=== PATIENT | female | born 1985 | race Caucasian/White ===

== ENCOUNTER 2023-09-20 08:00 | Outpatient (CLI) | payer BC ==
[2023-09-20 16:53] LABS: BILIRUBIN,URINE NEGATIVE (NEGATIVE); GLUCOSE, URINE (UA) NEGATIVE (NEGATIVE); KETONES,URINE (UA) NEGATIVE (NEGATIVE); LEUKOCYTE ESTERASE, URINE NEGATIVE (NEGATIVE); NITRITE,URINE NEGATIVE (NEGATIVE); OCCULT BLOOD,URINE NEGATIVE (NEGATIVE); PH,URINE 6.5 PH (5.0-7.5); PROTEIN,URINE NEGATIVE (NEGATIVE); UROBILINOGEN,URINE 0.2 (NORMAL) E.U./dL (NORMAL)
[2023-09-20 17:06] LABS: BACTERIA,URINE None Seen /HPF (None Seen); CLARITY,URINE CLEAR (CLEAR); RBC,URINE None Seen /HPF (0-5); SQUAMOUS EPITHELIAL CELL,UR RARE Squamous (<= Few); WBC,URINE 0-3 /HPF (0-5)
== END 2023-09-20 23:59 | disposition home or self-care (01) ==
LOC: LAB.WC 08:00
PROVIDERS: ATTEND Obstetrics & Gynecology
DX: Z34.80 Encounter for supervision of other normal pregnancy, unspecified trimester (principal)
CPT/HCPCS: 81001; 87086

== ENCOUNTER 2023-10-02 12:20 | Outpatient (CLI) | payer BC ==
--- NOTE | 2023-10-02 17:24 | Ultrasound Report ---
PROCEDURE: OB 1st Trimester INDICATIONS: POSITIVE TEST OUTSIDE/PRIOR DATING DATA: Last menstrual period (LMP): 07/18/2023. LMP-based estimated date of delivery (ISAAC): 04/23/2024. First dating scan (date and location): 10/02/2023. Estimated date of delivery (ISAAC) from first dating scan: 04/28/2024. TECHNIQUE: Real-time scanning was performed of the fetus and maternal pelvic organs, with image documentation. COMPARISON: None. FINDINGS: Intrauterine gestational sac present. Embryo: Childress-rump length measures 3.21 cm. Estimated gestational age is 10 weeks, 1 day. Heart rate: 171 bpm. Other: No perigestational fluid collection. Measurement variability in dating: +/- 4 weeks by LMP, +/- 7 days by mean sac diameter (use before 6 weeks gestation if crown-rump length not able to be measured), +/- 5 days by crown-rump length (6-12 weeks gestation). Maternal organs: Right corpus luteal cyst measures 3.1 x 3.1 x 3.5 cm in size. Intramural fibroid in anterior myometrium adjacent to placenta is seen measures 1.4 x 1.1 x 1.3 cm in size. IMPRESSION: 1. Single live intrauterine gestation with fetus and yolk sac seen. Estimated gestational age is 10 w eeks, 1 day. heart rate is 171 bpm. 2. Intramural fibroid in anterior myometrium as above. Right corpus luteal cyst measures 3.1 x 3.1 x 3.5 cm in size. Solid mass. Reviewed by: Franki Groves MD on 10/02/2023 5:23 PM PDT Approved by: Franki Groves MD on 10/02/2023 5:23 PM PDT Station ID: [id number]
== END 2023-10-02 12:21 | disposition home or self-care (01) ==
LOC: DI 12:20
PROVIDERS: ATTEND Obstetrics & Gynecology
DX: O34.11 Maternal care for benign tumor of corpus uteri, first trimester (principal); D25.1 Intramural leiomyoma of uterus; O34.81 Maternal care for other abnormalities of pelvic organs, first trimester; N83.11 Corpus luteum cyst of right ovary; Z3A.10 10 weeks gestation of pregnancy

== ENCOUNTER 2023-10-19 08:00 | Outpatient (CLI) | payer BC ==
[2023-10-20 20:11] LABS: CHLAMYDIA TRACHOMATIS DNA NEGATIVE (NEGATIVE); NEISSERIA GONORRHOEAE DNA NEGATIVE (NEGATIVE); TRICHOMONAS VAGINALIS DNA NEGATIVE (NEGATIVE)
== END 2023-10-19 23:59 | disposition home or self-care (01) ==
LOC: LAB.WC 08:00
PROVIDERS: ATTEND Nurse Practitioner
DX: Z11.3 Encounter for screening for infections with a predominantly sexual mode of transmission (principal)
CPT/HCPCS: 87491; 87591; 87661

== ENCOUNTER 2023-12-21 10:49 | Outpatient (CLI) | payer BC, OTHER ==
[2023-12-21 11:12] LABS: BASOPHILS % (AUTO) 0.4 %; EOSINOPHILS # (AUTO) 0.1 10^3/uL (0.0-0.7); EOSINOPHILS % (AUTO) 0.9 %; HCT - HEMATOCRIT 36.7 % (37.0-47.0); HGB - HEMOGLOBIN 11.8 g/dL (12.0-16.0); LYMPHOCYTES # (AUTO) 1.6 10^3/uL (1.5-3.5); LYMPHOCYTES % (AUTO) 16.3 %; MEAN CORPUSCULAR HEMOGLOBIN 29.1 pg (27.0-31.0); MEAN CORPUSCULAR HGB CONC 32.2 g/dL (32.0-36.0); MEAN CORPUSCULAR VOLUME 90.6 fL (81.0-99.0); MEAN PLATELET VOLUME 9.8 fL (7.9-10.8); MONOCYTES # (AUTO) 0.3 10^3/uL (0.0-1.0); NEUTROPHILS # (AUTO) 7.9 10^3/uL (1.5-6.6); NEUTROPHILS % (AUTO) 78.3 %; PLT - PLATELET COUNT 240 10^3/uL (130-450); RED BLOOD COUNT 4.05 10^6/uL (4.20-5.40); RED CELL DISTRIBUTION WIDTH 14.2 % (12.0-15.0)
[2023-12-22 02:08] LABS: HBsAG SCREEN Negative (Negative)
[2023-12-22 04:12] LABS: HIV SCREEN 4TH GENERATION Non Reactive (Non Reactive); RPR Non Reactive (Non Reactive)
[2023-12-22 09:10] LABS: VARICELLA-ZOSTER AB IGG 1241 index (Immune >165)
[2023-12-23 01:10] LABS: HCV AB Non Reactive (Non Reactive)
== END 2023-12-21 10:50 | disposition home or self-care (01) ==
LOC: LAB 10:49
PROVIDERS: ATTEND Nurse Practitioner
DX: O09.522 Supervision of elderly multigravida, second trimester (principal); Z36.89 Encounter for other specified antenatal screening
CPT/HCPCS: 36415; 81511; 85025; 86592; 86762; 86787; 86803; 86850; 86900; 86901; 87340; 87389

== ENCOUNTER 2024-01-15 10:12 | Outpatient (CLI) | payer OTHER ==
--- NOTE | 2024-01-15 12:30 | Ultrasound Report ---
PROCEDURE: OB Anatomy Scan INDICATIONS: SUPERVISION OF OUTSIDE/PRIOR DATING DATA: Last menstrual period (LMP): 07/18/2023. LMP-based estimated date of delivery (ISAAC): 04/23/2024. First dating scan (date and location): 10/02/2023. Estimated date of delivery (ISAAC) from first dating scan: 04/28/2024. TECHNIQUE: Real-time scanning was performed of the fetus, with image documentation and biometric measurements. COMPARISON: 10/02/2023 FINDINGS: General: A single living intrauterine gestation is present. Presentation: Variable Placenta: Placental position is posterior and fundal, without previa. Amniotic fluid index: 12.3 cm, within normal limits for gestational age. heart rate: 158 beats per minute. Maternal cervical canal: 4.1 cm cm long; normal length is 2.5 cm or more. biometrics: Biparietal diameter: 6.22 cm, 25 weeks and 2 days, 44.8 percentile Head circumference: 22.8 cm, 24 weeks and 6 days, 18.1 percentile Abdominal circumference: 20.6 cm, 25 weeks and 2 days, 43.1 percentile Femur length: 4.4 cm, 24 weeks and 4 days, 21.4 percentile Estimated gestational age from initial scan: 25 weeks and 1 day Composite gestational age from present scan: 24 weeks and 6 days Estimated weight and percentile: 755 g, 31.9 percentile Measurement variability in biometric dating: +/- 10 days from 12-20 weeks gestation, +/- 2 weeks from 20-30 weeks gestation, +/- 3 weeks at 30 weeks gestation or later. Anatomic survey: Neuro: Ventricles are normal at less than 10 mm. Cisterna magna is normal at 3-11 mm. Cerebellum i s normal in size and morphology. Nuchal skin fold: Normal at less than 6 mm between 14 and 20 weeks gestational age. Face: Nose and lips, facial profile are normal. Spine: No evidence for spina bifida. Heart: 4-chambered heart is present, with normal ventricular outflow tracts. Diaphragm: Diaphragm is intact. Stomach: Left-sided stomach is present. Kidneys: No hydronephrosis. Normal is less than 5 mm in 2nd trimester, less than 7 mm in 3rd trimester. Cord: 3 vessel cord has orthotopic insertion. Bladder: Normal in size. Extremities: All 4 extremities are visualized. IMPRESSION: Intrauterine gestation at 24 weeks and 6 days. MACHELLE within normal limits. EFW within normal limits at 31.9 percentile. No significant anatomic abnormalities on routine survey. Reviewed by: Rolando Acosta MD on 01/15/2024 12:29 PM PDT Approved by: Rolando Acosta MD on 01/15/2024 12:29 PM PDT Station ID: [id number]
== END 2024-01-15 10:13 | disposition home or self-care (01) ==
LOC: DI 10:12
PROVIDERS: ATTEND Nurse Practitioner
DX: O09.522 Supervision of elderly multigravida, second trimester (principal); Z3A.24 24 weeks gestation of pregnancy

== ENCOUNTER 2024-01-30 10:19 | Outpatient (CLI) | payer OTHER ==
[2024-01-30 11:28] LABS: HCT - HEMATOCRIT 32.3 % (37.0-47.0); HGB - HEMOGLOBIN 10.5 g/dL (12.0-16.0); MEAN CORPUSCULAR HEMOGLOBIN 29.4 pg (27.0-31.0); MEAN CORPUSCULAR HGB CONC 32.5 g/dL (32.0-36.0); MEAN CORPUSCULAR VOLUME 90.5 fL (81.0-99.0); MEAN PLATELET VOLUME 9.9 fL (7.9-10.8); RED BLOOD COUNT 3.57 10^6/uL (4.20-5.40); RED CELL DISTRIBUTION WIDTH 13.4 % (12.0-15.0); WHITE BLOOD COUNT 8.8 x10^3/uL (4.8-10.8)
[2024-01-31 06:12] LABS: RPR Non Reactive (Non Reactive)
== END 2024-01-30 10:20 | disposition home or self-care (01) ==
LOC: LAB 10:19
PROVIDERS: ATTEND Obstetrics & Gynecology
DX: O09.522 Supervision of elderly multigravida, second trimester (principal)
CPT/HCPCS: 36415; 82950; 85027; 86592

== ENCOUNTER 2024-02-13 08:10 | Outpatient (CLI) | payer OTHER ==
[2024-02-13 08:45] LABS: GTT GLUCOSE,FASTING 98 mg/dL (74-109)
== END 2024-02-13 08:11 | disposition home or self-care (01) ==
LOC: LAB 08:10
PROVIDERS: ATTEND Obstetrics & Gynecology
DX: Z36.89 Encounter for other specified antenatal screening (principal)
CPT/HCPCS: 36415; 82951; 82952

== ENCOUNTER 2024-03-15 08:00 | Outpatient (CLI) | payer OTHER ==
[2024-03-15 22:27] LABS: BACTERIAL VAGINOSIS DNA NEGATIVE (NEGATIVE); CANDIDA GLABRATA DNA NEGATIVE (NEGATIVE); CANDIDA GROUP DNA POSITIVE (NEGATIVE); CANDIDA KRUSEI DNA NEGATIVE (NEGATIVE); TRICHOMONAS VAGINALIS DNA NEGATIVE (NEGATIVE)
== END 2024-03-15 23:59 | disposition home or self-care (01) ==
LOC: LAB.WC 08:00
PROVIDERS: ATTEND Obstetrics & Gynecology
DX: N89.8 Other specified noninflammatory disorders of vagina (principal)
CPT/HCPCS: 81514

== ENCOUNTER 2024-04-04 15:55 | Outpatient (CLI) | payer OTHER | END 2024-04-04 15:56 | disposition home or self-care (01) | LOC: LAB.WC 15:55 | PROVIDERS: ATTEND Obstetrics & Gynecology | DX: Z36.85 Encounter for antenatal screening for Streptococcus B (principal) | CPT/HCPCS: 87797 ==

== ENCOUNTER 2024-04-25 01:43 | Inpatient (IN) ==
[2024-04-25] MEDS ORDERED: CARBOPROST TROMETHAMINE 250 MCG/ML VIAL IM PRN (03:04)
[2024-04-25] MEDS ORDERED: lidocaine 1% 20 ML MDV ID PRN (03:04)
[2024-04-25] MEDS ORDERED: SODIUM CHLORIDE FLUSH 0.9% 10 ML SYRINGE IVP PRN (03:04)
[2024-04-25] MEDS ORDERED: TRANEXAMIC ACID IN NACL 1,000 MG/100 ML BAG IV PRN (03:04)
[2024-04-25] MEDS ORDERED: miSOPROStoL 200 MCG TABLET BC PRN (03:04)
[2024-04-25] MEDS ORDERED: NIFEdipine 10 MG CAPSULE PO PRN ×2 (03:04→13:13)
[2024-04-25] MEDS ORDERED: OXYTOCIN/SODIUM CHLORIDE 500 ML IV PRN ×2 (03:04→13:13)
[2024-04-25] MEDS ORDERED: hydrALAZINE INJ 20 MG/ML VIAL IVP PRN (03:04)
[2024-04-25] MEDS ORDERED: fentaNYL 100 MCG/2 ML VIAL IVP PRN (03:04)
[2024-04-25] MEDS ORDERED: METHYLERGONOVINE 0.2 MG/ML VIAL IM PRN (03:04)
[2024-04-25] MEDS ORDERED: miSOPROStoL 200 MCG TABLET PR PRN (03:04)
[2024-04-25] MEDS ORDERED: TERBUTALINE 1 MG/ML VIAL SUBQ PRN (03:04)
[2024-04-25] MEDS ORDERED: LABETALOL 20 MG/4 ML SYRINGE IVP PRN ×3 (03:04)
[2024-04-25] MEDS ORDERED: OXYTOCIN 10 UNIT/ML VIAL IM PRN (03:04)
[2024-04-25] MEDS ORDERED: CALCIUM CARBONATE PO PRN (03:57)
[2024-04-25] MEDS: LACTATED RINGERS 500 ML IV ONE (04:00)
--- NOTE | 2024-04-25 04:09 | HISTORY & PHYSICAL EXAMINATION ---
Admit History Visit Reason Visit Reason: Contractions Smoking Status: Never smoker Other Maternal History Other Maternal History: Patient is a 38-year-old [id number] at 40 weeks 2 days gestation presenting today for contractions. She had a membrane sweep in clinic earlier this week, but they intensified yesterday evening. She has good movement. Denies loss of fluid. No BOOGIE/BV or RUQP. No vaginal bleeding. Denies nausea and vomiting. Denies urinary urgency or dysuria. Course LMP: 07/18/2023 ISAAC by LMP: 04/23/2024 Initial US Date 10/02/2023, US Age 10 weeks 1 day, ISAAC by ultrasound: 04/28/2024 Final ISAAC: 04/23/2024 by LMP consistent with 10-week ultrasound FOB: Golden. Both from [place]. sex: [place]: It's a boy daughter: Luis Fernando age 2 Both her and Golden work remotly (live in [place]) - H/o Stroke in ~2004 - history clarified at visit on 01/11; Consult with [facility] MFM on 02/14 -Recommended Lovenox for 6 weeks; she requests ORAL anticoagulation at visit on 04/04, does NOT plan to breastfeed. Impaired glucose tolerance -Monitoring blood sugars until at least next visit. second week was perfect. Told she can stop monitoring. Pre- Weight: 138 BMI: 24.57 Blood type: A+ Antibody: negative CBC: PLT 240 HCT 36.7 HGB 11.8 RUB: immune VZV: immune HBsAg: negative HepC: NR RPR/AB-EIA: NR HIV: NR PAP: unknown, recommend pp. 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 Declines [id number]. Covid: vaccinated & boosted Flu: March 15, 2024 rsv: March 15, 2024 FAS: WNL Placenta: posterior Cord: 3VC MACHELLE: 12.3 cm EFW: 755g; 31.9%ile 50gm OGCT: 146 3HR GTT: 98/173/106/79 TDAP: 01/24 Breast Pump: 01/24 RPR- NR 3rd trimester H/H 10.5/32.3 PLT 202- added iron GBS: 03/28 Delivery plan: Contraception: no estrogen containg contraceptives HPI Current : Current EDU 04/23/24 Gestation 40 Weeks and 2 Days Para 1 Vital Signs Temperature 37 C 04/25/24 01:56 Pulse Rate 80 04/25/24 01:56 Respiratory Rate 16 04/25/24 01:56 Blood Pressure 131/79 H 04/25/24 01:56 Temperature 37 C 04/25/24 01:56 Pulse Rate 80 04/25/24 01:56 Respiratory Rate 16 04/25/24 01:56 Blood Pressure 131/79 H 04/25/24 01:56 NST Procedure NST Procedure: NST Procedure Start Date 04/25/24 Start Time 01:54 Stop Time 02:15 Vibroacoustic Stimulation Used No Patient States Movement Yes Results and Plan Findings/Impression: NST Performed 04/25/2024 NST Read 04/25/2024 FHT: 130 bpm baseline, moderate variability, accelerations present, no decelerations. Reactive NST [place]: Irregular Meds/Allgy Home Medications Ambulatory Orders Medication Instructions Recorded Confirmed calcium carbonate (Tums) 750 mg PO .as needed PRN 04/16/24 04/22/24 ferrous sulfate 325 mg (65 mg 325 mg PO QDAY 04/16/24 04/22/24 iron) tablet prenat.vits,keon,uxn-aibh-accfj tab PO 04/16/24 04/22/24 Allergies Allergies Allergy/AdvReac Type Severity Reaction Status Date / Time Estrogens AdvReac Severe Unknown Verified 04/25/24 03:20 [facility] Medical History Medical History (Updated 04/25/24 @ 04:20 by James Varela MD) History of stroke saw [facility] 02/2024 for consult, recommends prophylactic lovenox x 6 weeks. Surgical History Surgical History (Updated 04/16/24 @ 15:34 by Tammy Reece MA) History of cholecystectomy 2014 Family History Family History (Updated 04/16/24 @ 15:36 by Tammy Reece MA) Father Long COVID High blood pressure Mother High blood pressure Brother High blood pressure Schizophrenia Social History Social History (Updated 04/16/24 @ 15:36 by Tammy Reece MA) Smoking Status: Never smoker Do you dip or chew tobacco?: No Physical Abdominal Exam Vital Signs: Temp Pulse Resp BP 37 C 80 16 131/79 H 04/25/24 01:56 04/25/24 01:56 04/25/24 01:56 04/25/24 01:56 Vaginal Exam Dilation (in cm): 4 Effacement (%): 50 Station: positive -2 Cervical Position: positive Posterior Other Notes Labor Progress Note/Additional Text: General: Alert, oriented, no acute distress Head: Normal cephalic atraumatic Eyes: PERRLA, extraocular motions intact. Respiratory: Normal rate of respiration. No accessory muscle use, normal respiratory effort. Cardiovascular: Regular rate and rhythm Abdomen: Gravid, nontender, nondistended Extremities: Normal range of motion Neuro: Oriented x3. Normal movements Psych: Appropriate mood and affect. Normal judgment and insight Plan for Labor Plan For Labor I expect patient to be DC'd or transferred within 96 hours.: Yes Conclusion/Plan Problem List (1) 40 weeks gestation of : Plan: Admit to L&D, admit labs Plan for augmentation of labor. Already 4 cm. Membranes swept on check as she may change. Will get admit labs and start oxytocin. Epidural at patient request (2) Supervision of elderly multigravida: Plan: as above (3) Supervision of normal in third trimester: Plan: as above Qualifiers: Normal : other normal Qualified Code(s): Z34.83 - Encounter for supervision of other normal , third trimester (4) Advanced maternal age (AMA) in : Plan: as above (5) History of thrombosis: Plan: Will discuss anticoagulation after delivery. Leaning towards oral anticoagulant as she is worried about giving herself a shot for 6 weeks. Will demonstrate while here then she can decide.
[2024-04-25] MEDS: LACTATED RINGERS 1,000 ML IV PRN (04:16)
[2024-04-25] MEDS: OXYTOCIN/SODIUM CHLORIDE 500 ML IV SCH (04:16)
[2024-04-25 04:22] LABS: BASOPHILS % (AUTO) 0.3 %; EOSINOPHILS # (AUTO) 0.1 10^3/uL (0.0-0.7); EOSINOPHILS % (AUTO) 0.8 %; HCT - HEMATOCRIT 43.7 % (37.0-47.0); HGB - HEMOGLOBIN 13.8 g/dL (12.0-16.0); LYMPHOCYTES # (AUTO) 2.1 10^3/uL (1.5-3.5); LYMPHOCYTES % (AUTO) 16.9 %; MEAN CORPUSCULAR HEMOGLOBIN 28.3 pg (27.0-31.0); MEAN CORPUSCULAR HGB CONC 31.6 g/dL (32.0-36.0); MEAN CORPUSCULAR VOLUME 89.5 fL (81.0-99.0); MEAN PLATELET VOLUME 10.7 fL (7.9-10.8); MONOCYTES # (AUTO) 0.7 10^3/uL (0.0-1.0); MONOCYTES % (AUTO) 5.7 %; NEUTROPHILS # (AUTO) 9.3 10^3/uL (1.5-6.6); NEUTROPHILS % (AUTO) 75.7 %; PLT - PLATELET COUNT 229 10^3/uL (130-450); RED BLOOD COUNT 4.88 10^6/uL (4.20-5.40); RED CELL DISTRIBUTION WIDTH 14.6 % (12.0-15.0); WHITE BLOOD COUNT 12.3 x10^3/uL (4.8-10.8)
[2024-04-25] MEDS ORDERED: LIDOCAINE 2%-EPI 1:100000 20 ML MDV ONE (04:25)
[2024-04-25] MEDS ORDERED: ROPIVACAINE 0.2% 200 MG/100 ML BAG EP ONE (04:25)
[2024-04-25 04:42] LABS: ALBUMIN 3.6 g/dL (3.2-5.5); ALBUMIN/GLOBULIN RATIO 1.2 (1.0-2.2); BILIRUBIN,TOTAL 0.3 mg/dL (0.2-1.0); CALCIUM 9.6 mg/dL (8.5-10.3); CREATININE 0.7 mg/dL (0.6-1.3); POTASSIUM 4.1 mmol/L (3.5-4.5); TOTAL PROTEIN 6.6 g/dL (6.4-8.9)
[2024-04-25] MEDS ORDERED: ePHEDrine 50 MG/ML VIAL IVP ONE (05:16)
--- NOTE | 2024-04-25 05:16 | ANESTHESIA PROCEDURE NOTE ---
Pre-Anesthesia VS, & Labs Diagnosis Surgical Diagnosis:: labor induction Procedure Procedure: labor epidural Vitals Vital Signs: Temp Pulse Resp BP 37 C 80 16 131/79 H 04/25/24 01:56 04/25/24 01:56 04/25/24 01:56 04/25/24 01:56 NPO NPO: >8 hours Is Patient ?: Yes Lab Results Current Lab Results: Laboratory Tests 04/25/24 03:45: WBC 12.3 H, RBC 4.88, Hgb 13.8, Hct 43.7, MCV 89.5, MCH 28.3, M CHC 31.6 L, RDW 14.6, Plt Count 229, MPV 10.7, Neut # (Auto) 9.3 H, Lymph # (Auto) 2.1, [place] # (Auto) 0.7, Eos # (Auto) 0.1, Baso # (Auto) 0.0, Absolute Nucleated RBC 0.00, Nucleated RBC % 0.0, Sodium 137, Potassium 4.1, Chloride 106, Carbon Dioxide 21, Anion Gap 10.0, BUN 15, Creatinine 0.7, Estimated GFR (MDRD) 94, Glucose 126 H, Calcium 9.6, Total Bilirubin 0.3, AST 19, ALT 9 L, Alkaline Phosphatase 99, Total Protein 6.6, Albumin 3.6, Globulin 3.0, Albumin/Globulin Ratio 1.2 04/25/24 03:45 04/25/24 03:45 Meds/Allgy Home Medications Ambulatory Orders Medication Instructions Recorded Confirmed calcium carbonate (Tums) 750 mg PO .as needed PRN 04/16/24 04/22/24 ferrous sulfate 325 mg (65 mg 325 mg PO QDAY 04/16/24 04/22/24 iron) tablet prenat.vits,keon,zzw-eevt-avnll tab PO 04/16/24 04/22/24 Allergies Allergies Allergy/AdvReac Type Severity Reaction Status Date / Time Estrogens AdvReac Severe Unknown Verified 04/25/24 03:20 [facility] Medical History Medical History (Updated 04/25/24 @ 04:20 by James Varela MD) History of stroke saw [facility] 02/2024 for consult, recommends prophylactic lovenox x 6 weeks. Surgical History Surgical History (Updated 04/16/24 @ 15:34 by Tammy Reece MA) History of cholecystectomy 2014 Family History Family History (Updated 04/16/24 @ 15:36 by Tammy Reece MA) Father Long COVID High blood pressure Mother High blood pressure Brother High blood pressure Schizophrenia Social History Social History (Updated 04/16/24 @ 15:36 by Tammy Reece MA) Smoking Status: Never smoker Do you dip or chew tobacco?: No Anesthesia Exam (Expanded) Exam General: Alert, Oriented x3 and Mild distress Dental: WNL Mouth Openin Fingerbreadth Mallampati classification: II Thyromental Distance: greater than 6 cm Respiratory: Lungs clear Cardiovascular: Regular rate Exam Exam Vital Signs Temperature 37 C 04/25/24 01:56 Pulse Rate 80 04/25/24 01:56 Respiratory Rate 16 04/25/24 01:56 Blood Pressure 131/79 H 04/25/24 01:56 Plan Plan Anesthesia Type: Epidural Consent for Procedure(s) Verified and Reviewed: Yes Code Status: Attempt Resuscitation ASA Classification ASA classification: 2-Mild systemic disease Is this case an emergency?: No
[2024-04-25] MEDS ORDERED: ePHEDrine 50 MG/ML VIAL IVP PRN (05:18)
[2024-04-25] MEDS ORDERED: NALOXONE 0.4 MG/ML VIAL IVP PRN ×2 (05:18→13:13)
[2024-04-25] MEDS ORDERED: diphenhydrAMINE INJ 50 MG/ML VIAL IVP PRN (05:18)
[2024-04-25] MEDS ORDERED: ROPIVACAINE 0.2% 200 MG/100 ML BAG EP PRN (05:18)
[2024-04-25] MEDS ORDERED: NALBUPHINE 10 MG/ML AMP IVP PRN (05:18)
[2024-04-25] MEDS ORDERED: ONDANSETRON 4 MG/2 ML VIAL IVP PRN (05:18)
[2024-04-25] MEDS ORDERED: METOCLOPRAMIDE 10 MG/2 ML VIAL IVP PRN (05:18)
--- NOTE | 2024-04-25 11:36 | PHARMACY PROGRESS NOTE ---
Best Possible Medication History Admit Date and Time: 04/25/24 0304 Processed by: Pharmacy Medications reviewed in ED?: No Medication History completed: Yes Patient Interview: Pt unable to participate Secondary Source(s): Physician records and Insurance records [facility] Statement: As the person ultimately responsible for medication therapy, providers are able to order a medication from an existing home medication list in [facility] via the "Reconcile Routine" prior to Confirmation of that medication by child support officer. Such practice is discouraged except when the physician, in their clinical ju dgment, deems that a medical need exists for a medication without regard to previous use.
[2024-04-25] MEDS: SODIUM CHLORIDE FLUSH 0.9% 10 ML SYRINGE IVP SCH (12:54)
[2024-04-25] MEDS ORDERED: SIMETHICONE CHEW 80 MG TABLET PO PRN (13:13)
[2024-04-25] MEDS ORDERED: diphenhydrAMINE 25 MG CAPSULE PO PRN (13:13)
[2024-04-25] MEDS: ACETAMINOPHEN 500 MG TABLET PO PRN (13:44)
[2024-04-25] MEDS: IBUPROFEN 600 MG TABLET PO PRN (13:45)
--- NOTE | 2024-04-25 15:38 | DELIVERY NOTE ---
Delivery Note Labor Labor: positive Augmented by oxytocin Infant Delivery Method Delivery Method: positive Spontaneous vaginal delivery Presentation Presentation: positive Vertex and ROSALVA - right occiput anterior Nuchal Cord Nuchal Cord: positive Present (body cord) Amniotic Fluid Description Amniotic Fluid Description: positive [place] tinged Episiotomy Type Episiotomy Type: positive None Laceration Laceration: positive 2nd degree Suture Suture Type: positive Vicryl Suture Size: positive 3-0 Delivery Outcome Delivery Outcome: positive Livebirth [place] : positive Placed in direct skin contact with mother, Stimulated and Warmed [place] sex: positive Male Cord Cord: positive 3 vessels Placenta Placenta: positive Intact Estimated Blood Loss Estimated Blood Loss (in cc): 100 Post Delivery Events Post Delivery Events: positive No post delivery events Delivery Comments (Free Text/Narrative) Delivery Comments (Free Text/Narrative): Francisca was examined this morning at approximately 9AM and found to be 6/90/-1, rupture of membranes occurred spontaneously at time of SVE. IUPC was placed for possible amnioinfusion due to variable decelerations. Variables subsequently improved with repositioning and amnioinfusion was not needed. She progressed to complete dilation and I arrived at bedside to start pushing with her. The anterior shoulder delivered easily with maternal effort and gentle downward pressure followed by the remainder of the body. The was placed on the mother's abdomen. After 60 sec the cord was clamped times two and cut. Cord blood collected. Pitocin was started. The placenta was delivered intact. Excellent uterine tone noted. Faiza Goss MD
[2024-04-25] MEDS: DOCUSATE SODIUM 100 MG CAPSULE PO SCH (20:57)
[2024-04-25] MEDS: ENOXAPARIN 40 MG/0.4 ML SYRINGE SUBQ SCH (23:57)
[2024-04-26 05:21] VITALS: O2SAT 100
[2024-04-26] MEDS ORDERED: XARELTO 10 MG PO SCH (09:00)
--- NOTE | 2024-04-26 13:42 | Labor Flowsheet ---
Labor Flowsheet Datetime Report Generated by CPN: 04/26/2024 13:42 Datetime: 04/26/2024 08:02 VITAL SIGNS NBP Sys/Keerthi/Mean (mmHg): 124 : 82 : 93 Pulse: 66 Datetime: 04/25/2024 12:44 Temperature (C): 36.7 Temperature Route: Oral PAIN Pain Scale: 0 Pain Presence: None/Denies Datetime: 04/25/2024 12:17 Stage 2 Comments: placenta Datetime: 04/25/2024 12:14 Medication Comments: pit @ 350 for 30 mins per VO per Dr.Ana Paula Datetime: 04/25/2024 12:11 Stage of : Recovery Datetime: 04/25/2024 12:00 UTERINE ACTIVITY Monitor Mode: External Frequency (min): 2-4 Duration (sec): 70-80 Pattern: Normal: <= 5 Contractions in 10 Minutes ASSESSMENT A Monitor Mode: External US FHR Baseline Rate : 145 Variability: Moderate 6-25 bpm Decelerations: Late; Variable Category: Category II Comments: pt pushing with cxtns Datetime: 04/25/2024 11:59 LaborFlag: Labor Datetime: 04/25/2024 11:49 Station: 2 Exam by: Dr.Ana Paula Pushing Position: Pushing Lithotomy Datetime: 04/25/2024 11:36 Patient Care Comments: Barnes removed for 375mL urine Datetime: 04/25/2024 11:35 STAGE 2 Pushing: Coached on Pushing Datetime: 04/25/2024 11:31 COMMUNICATION Communication Comments: Dr. Ana Paula at bedside Datetime: 04/25/2024 11:30 Monitor Interventions for UA: [place] Adjusted Accelerations: 15X15 Datetime: 04/25/2024 11:12 VAGINAL EXAM Dilatation (cm): 10.0 Datetime: 04/25/2024 10:53 Pain Type: Contraction Pain Location: Abdomen Datetime: 04/25/2024 10:45 Quality: Strong Resting Tone (Palpate): Relaxed Datetime: 04/25/2024 10:35 Contraction Comments: IUPC removed with exam Datetime: 04/25/2024 10:34 Effacement (%): 100 Vaginal Bleeding: Normal Show Cervix, Consistency: Soft Cervix, Position: Midposition Datetime: 04/25/2024 10:30 Resting Tone IUP (mmHg): 40 Intensity IUP (mmHg): 90 [place] Units (mmHg): 215 Datetime: 04/25/2024 10:25 Pain Assessment Comments: pt feeling pain on left side. 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 Datetime: 04/25/2024 10:17 MEDICATIONS Pitocin (milliunits): Discontinued Datetime: 04/25/2024 10:11 PATIENT CARE Patient Position/Activity: Left Lateral Datetime: 04/25/2024 09:30 Pitocin Checklist: At Least 1 Acceleration of 15 bpm x 15 Seconds in 30 Minutes or Adequate Variabi lity; No More than 1 Late Deceleration Occurred in Past 30 Minutes; No More than 5 Uterine Contractio ns in 10 Minutes for any 20 Minute Interval; Uterus Palpates Soft between Contractions Datetime: 04/25/2024 08:59 Membrane Status: Ruptured Membranes Rupture Method: Spontaneous Amniotic Fluid Color: Clear Amniotic Fluid Amount: Moderate Amniotic Fluid Odor: Normal Datetime: 04/25/2024 07:50 Anesthesia Comments: 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, 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 Datetime: 04/25/2024 07:00 Actions for Decelerations: Side to Side Datetime: 04/25/2024 06:53 SpO2 (%): 97 Datetime: 04/25/2024 06:13 I/O Interventions: Barnes Cath Inserted Datetime: 04/25/2024 04:57 Epidural Procedure Other: Pump Started Datetime: 04/25/2024 04:44 Epidural Procedure: Test Dose Datetime: 04/25/2024 04:34 PROCEDURE TIME OUT Procedure Verify: Correct Patient Identity; Correct Side and Site are Marked; Accurate Procedure Co nsent Form; Agreement on Procedure to be Done; Correct Patient Position; Relevant Images and Results are Properly Labeled and Displayed; Safety Precautions Based on Patient History or Medication Use ANESTHESIA Anesthesia Plans: Epidural Epidural Positioning: Sitting
--- NOTE | 2024-04-26 20:03 | Discharge Summary ---
"Discharge Summary Admit Date: 04/25/24 Discharge Date: 04/26/24 Discharging Provider: Janeth Pike MD Code Status: Attempt Resuscitation DIAGNOSES Admission Diagnoses: term in labor. Discharge Diagnoses with Status of Each Condition: vaginal delivery h/o stroke to have pp anticoagulation HPI History of Present Illness: presents in active labor at term. CONSULTS | PROCEDURES Procedures: vaginal delivery with epidural anesthesia. HOSPITAL COURSE Hospital Course: Presented 4+ cm. progressed to complete. Augmented with some pitocin. SROM 0859. vaginal delivery at 1211. 2nd degree laceration repaired. baby boy 3422 grams. 20.5 in long apgars 8/9. mom and baby discharged home at 24 hrs pp. Mom had lovenox at midnight after delivery. will start xarelto at home tonight. ALLERGIES Allergies Allergy/AdvReac Type Severity Reaction Status Date / Time Estrogens AdvReac Severe Unknown Verified 04/25/24 03:20 MEDICATIONS Ambulatory Orders Medication Instructions Recorded Confirmed calcium carbonate (Tums) 750 mg PO .as needed PRN heartburn 04/16/24 04/25/24 ferrous sulfate 325 mg (65 mg 325 mg PO QDAY 04/16/24 04/25/24 iron) tablet prenat.vits,keon,ytn-zckq-jnety 1 tab PO DAILY 04/16/24 04/25/24 rivaroxaban 10 mg tablet (Xarelto) 10 mg PO QDAY #42 tabs 04/25/24 docusate sodium 100 mg capsule 100 - 200 mg (1 - 2 x 100 mg) PO 04/26/24 BID PRN Constipation #60 caps PHYSICAL EXAM AT DISCHARGE General Appearance: positive No acute distress Cardiovascular: positive Regular rate & rhythm Abdomen: positive Non-tender Extremities: positive Non-tender and No pedal edema Neurologic/Psychiatric: positive Oriented x3 LABS 04/25/24 03:45 04/25/24 03:45 FOLLOW UP Follow Up: in clinic in 1-2 weeks. TIME SPENT Time Spent in Discharge (Minutes): 15 Discharge Plan Discharge Patient Disposition: Home, Self Care Condition: Good Prescriptions: New docusate sodium 100 mg capsule 100 - 200 mg PO BID PRN (Reason: Constipation) Qty: 60 1RF Continued Xarelto 10 mg tablet 10 mg PO QDAY Qty: 42 2RF Rx Instructions: Take for 6 weeks . ferrous sulfate 325 mg (65 mg iron) tablet 325 mg PO QDAY Tums 300 mg (750 mg) tablet,chewable 750 mg PO .as needed PRN (Reason: heartburn) prenat.vits,keon,pui-oyiu-eyzda Tablet 1 tab PO DAILY Activity Restrictions: pelvic rest 6 weeks Diet: Regular Print Language: Persian"
== END 2024-04-26 13:40 | disposition home or self-care (01) | DRG 807 ==
LOC: WFO 01:43 → FBP 01:44
PROVIDERS: ADMIT Obstetrics & Gynecology; ATTEND Obstetrics & Gynecology
DX: Z86.718 Personal history of other venous thrombosis and embolism; O70.1 Second degree perineal laceration during delivery; Z79.01 Long term (current) use of anticoagulants; Z37.0 Single live birth; Z3A.40 40 weeks gestation of pregnancy; O76 Abnormality in fetal heart rate and rhythm complicating labor and delivery; O69.81X0 Labor and delivery complicated by cord around neck, without compression, not applicable or unspecified; Z86.73 Personal history of transient ischemic attack (TIA), and cerebral infarction without residual deficits; O48.0 Post-term pregnancy